=== PATIENT | female | born 1940 | race Caucasian/White ===

== ENCOUNTER 2020-09-20 11:19 | Outpatient (REF) | payer MEDICARE, SELFPAY | END 2020-09-20 11:20 | disposition home or self-care (01) | LOC: HO.LAB 11:19 | PROVIDERS: PCP Nurse Practitioner Family; Visit Provider Internal Medicine | DX: Z20.828 Contact with and (suspected) exposure to other viral communicable diseases (principal) | CPT/HCPCS: C9803; U0003 ==

== ENCOUNTER 2020-12-04 08:32 | Outpatient (REF) | payer MEDICARE, SELFPAY ==
--- NOTE | 2020-12-04 16:37 | MHC.AU.P13 ---
Adult Audiological Evaluation Date of Visit: 12/04/20 Electrolysist Used: COMMODITIES TRADER accompanied patient and helped with translation. Reason for Appointment: Audiological evaluation to monitor the status of Ms. Mosley's hearing loss. 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 She denies any significant changes to her hearing or medical history. She notes that she got a hearing aid between 6 months and 1 year ago but has since lost it. Does patient feel they have a hearing loss?: Yes If Yes, Which Ear?: Left Ear Has hearing been tested previously?: Yes Previous Hearing Test Results: [facility] [place], 07/12/2019- Mild to moderately severe mixed hearing loss in the left ear. Normal hearing in the right ear with a mild sensorineural hearing loss at 3k and 6k Hz. Ear History: Previous Ear Surgery: Left ear- PE tubes Bothersome Tinnitus/Ringing/Noises in Ears: Left Ear Blocked/Full Sensation in Ear(s): Left Ear Medical History: Medical History: Diabetes, High Blood Pressure, Thyroid Disease Medical History (Other): Chronic kidney disease Otoscopy: Right Ear: Unremarkable Left Ear: Unremarkable Tympanometry: Right Ear: Normal Middle Ear System (Type A) Left Ear: Non-compliant Middle Ear System (Type B) Hearing Evaluation: Transducer(s) Used: Insert Earphones, Bone Conduction Method: Conventional Audiometry Stimuli Used: Pure Tones Right Ear: Description of Hearing: Normal hearing 250-4000 Hz and 8000 Hz, with a mild hearing loss at 6000 Hz. Left Ear: Description of Hearing: Normal hearing at 250 Hz, sloping to a mild conductive hearing loss at 500-1000 Hz, a mild sensorineural hearing loss at 2000 Hz, a moderate mixed hearing loss at 3000 Hz, a severe conductive hearing loss at 4000 Hz, and a moderately severe hearing loss from 4818-1720 Hz. Speech Recognition Threshold (SRT): Method Used: Recorded Lists Stimuli Used: Spondee Words Right Ear: 30 dBHL Left Ear: 45 dBHL Word Discrimination: Method: Recorded Lists Word Lists Used: Lista Bisil?bica (Kosovan) Right Ear: 100% at 70 dBHL Left Ear: 100% at 80 dBHL Comparison: Compared to the most recent evaluation: Hearing is stable. Middle ear dysfunction persists in the left ear. Recommendations: Recommendations: Audiological re-evaluation in one year. Trial with amplification is recommended. Recommendations (Other): Ms. Mosley is scheduled to follow-up with ENT Dr. Adria Vera. Faxing today's audiogram and report to Dr. Vera. Advised Ms. Mosley that she should contact the clinic she received the hearing aid from about getting a replacement, as it may still be under warranty. She is also welcome to have her hearing aid records transferred to our clinic and we can look into getting her a replacement aid. Diagnosis: Primary Diagnosis: H90.3 Bilateral Sensorineural Hearing Loss Services Performed: Services Performed: Comprehensive Audiological Evaluation (CPT 83356) Tympanometry (CPT 48741) Signature: Provider: Erica Fernandez, CCC-A
== END 2020-12-04 08:33 | disposition home or self-care (01) ==
LOC: HO.SH 08:32
PROVIDERS: Visit Provider Nurse Practitioner Family
DX: H90.3 Sensorineural hearing loss, bilateral (principal)
CPT/HCPCS: 92557; 92567

== ENCOUNTER 2021-01-30 18:28 | Emergency (ER) | payer MEDICARE, SELFPAY ==
--- NOTE | ~2021-01-30 | CT_ITS ---
EXAMINATION: CT ABDOMEN AND PELVIS WITHOUT CONTRAST CLINICAL INFORMATION: Right upper quadrant and flank pain COMPARISON: None TECHNIQUE: Multidetector volumetric imaging was performed from the superior aspect of the liver through the pubic symphysis. Sagittal and coronal reformatted images were obtained on the technologist's workstation. This CT examination was performed using dose optimization techniques as appropriate, variously including the following: *Automated exposure control *Adjustment of mA and/or kV according to patient size (this includes techniques or standardized protocols for targeted exams where dose is matched to indication/reason for exam; i.e. extremities or head) *Use of iterative reconstruction technique DLP: 446 mGy-cm FINDINGS: LUNG BASES: Left lower lobe consolidation/atelectasis is present in the posterior basal segment. LIVER, GALLBLADDER, AND BILIARY TREE: The liver is normal in size, shape, and attenuation. No focal hepatic lesion or biliary ductal dilatation is present. Status post cholecystectomy. PANCREAS: Unremarkable. SPLEEN: Multiple splenic granulomas are present. ADRENAL GLANDS: Unremarkable. KIDNEYS AND URETERS: Both kidneys are somewhat lobular in appearance. Some rounded hyper attenuating lesions are present on the left most likely hyperdense/hyperattenuating cyst cysts. A water density cyst is noted on the right. No solid masses are seen on this study without IV contrast. No hydronephrosis is seen. No renal calculi are present. The ureters are not dilated. There are some large calcifications overlying the course of the right ureter which most likely represent phleboliths as the collecting system is not dilated. BLADDER: Unremarkable. GASTROINTESTINAL TRACT: Extensive sigmoid diverticular changes are present with mucosal hypertrophy. In the area of the distal descending colon, some diverticular changes are present as well with some pericolonic inflammatory change suggesting diverticulitis, although this is not the area of the patient's symptoms. The small and remainder of the large bowel are unremarkable. The appendix is unremarkable. ABDOMINAL WALL: A ventral hernia seen just to the right of the midline containing small bowel which does not appear obstructed. LYMPH NODES: No retroperitoneal lymphadenopathy VASCULAR: Atherosclerotic changes without aneurysm. PELVIC VISCERA: Surgically removed OSSEOUS STRUCTURES: Severe degenerative changes present at L5-S1 with lesser changes present at L4-L5. No pathologic bony destructive lesions are seen. CT/CT abdomen pelvis wo con IMPRESSION: 1. Left lower lobe consolidation/atelectasis 2. Status post cholecystectomy and hysterectomy 3. Splenic granulomas 4. An area at the junction of the descending colon and sigmoid exhibits findings that would be compatible with early uncomplicated diverticulitis, however, this is not the location of the patient's symptoms. 5. Nonobstructing ventral hernia just to the right of the midline in the pelvis.
--- NOTE | ~2021-01-30 | XR_ITS ---
EXAMINATION: XR CHEST CLINICAL INFORMATION: Cough COMPARISON: Overt 27 2016 TECHNIQUE: 2 views of the chest were obtained. FINDINGS: The heart and pulmonary vessels appear normal. Again seen is a dense calcified right midlung granuloma unchanged. In the right suprahilar region there is an area of patchy increased density slightly increased when compared to the prior study which could represent a small infiltrate. A similar finding is present in the posterior basal segment of the left lower lobe with some ill-defined patchy density. The lungs are otherwise clear. Degenerative changes and scoliosis noted in the spine. Surgical clips present in the gallbladder fossa. XR/XR chest 2V IMPRESSION: 2 ill-defined areas of patchy densities - on the right suprahilar region as well as in the posterior basal segment left lower lobe. Differential diagnosis would include pneumonia.
[2021-01-30 20:07] VITALS: BP 163/78; PULSE 84; RESP 16; TEMP 36.7; O2SAT 100; BMI 22.3
[2021-01-30 20:34] LABS: MANUAL DIFF FLAG NO
[2021-01-30 20:37] LABS: Basophils Absolute Auto 0.1 X10*3/uL (0.0-0.2); Basophils Percent Auto 0.4 % (0-2); Eosinophils Absolute Auto 0.1 X10*3/uL (0.0-0.4); Eosinophils Percent Auto 0.5 % (0-4); Hematocrit 34.9 % (37-47); Hemoglobin 11.2 g/dl (12.0-16.0); Imm Gran Abs Auto 0.03 X10*3/uL (0.00-0.03); Imm Gran Pct Auto 0.2 % (0.0-0.4); Lymphocytes Absolute Auto 2.7 X10*3/uL (1.2-4.9); Lymphocytes Percent Auto 20.6 % (20-40); Mean Corpuscular HGB Conc 32.1 g/dl (31.0-35.0); Mean Corpuscular Hemoglobin 28.4 pg (27.0-33.0); Mean Corpuscular Volume 88.6 fL (80-98); Monocytes Absolute Auto 0.8 X10*3/uL (0.1-1.2); Monocytes Percent Auto 5.9 % (2-11); Neutrophils Absolute Auto 9.4 X10*3/uL (2.0-8.3); Neutrophils Percent Auto 72.4 % (45-73); Platelet Count 269 X10*3/uL (160-400); Red Blood Count 3.94 X10*6/uL (4.20-5.50); Red Cell Distribution Width 12.4 % (11.0-16.0); White Blood Count 12.9 X10*3/uL (4.8-10.8)
[2021-01-30 20:54] LABS: Glucose Urine UA NEG (NEG); Leukocyte Esterase Urine TRACE (NEG); Nitrite Urine NEG (NEG); PH 5.5 (5.0-8.0); Specific Gravity - Urine 1.015 (1.005-1.025); UACC Culture Trigger YES; Urine Blood NEG (NEG); Urine Ketones 5 MG/DL (NEG); Urine Protein NEG (NEG-TRACE)
[2021-01-30 20:56] LABS: Alanine Aminotransferase 15 U/L (0-31); Albumin Level 4.5 g/dL (3.5-5.0); Alkaline Phosphatase 75 U/L (39-117); Anion Gap 19 (12-20); Aspartate Amino Transferase 13 U/L (5-31); Blood Urea Nitrogen 29 mg/dL (9-16); Calcium 8.9 mg/dL (8.4-10.2); Carbon Dioxide 22 mmol/L (22-29); Chloride 100 mmol/L (96-108); Creatinine Clr Calc Pharmacy 26.1; Estimated Glomerular Filt Rate 34; Glucose Random 167 mg/dL (60-115); Potassium 4.9 mmol/L (3.3-5.1); Sodium 136 mmol/L (135-145)
[2021-01-30 20:58] LABS: Appearance Urine CLEAR; Color Urine YELLOW
[2021-01-30 21:05] LABS: Bacteria Urine TRACE /LPF; RBC Urine 0-2 /HPF (0); Squamous Epithelial Cell Urine TRACE /LPF
[2021-01-30 21:06] LABS: Renal Epithelial Cells Urine TRACE /LPF
[2021-01-30 22:00] VITALS: BP 153/73; PULSE 75; RESP 16; TEMP 37; O2SAT 97
--- NOTE | 2021-01-30 22:13 | ED.ABDPAIN ---
HPI - Abdominal Pain General Chief Complaint: Abdominal Pain Stated Complaint: R Side pain Time Seen by Provider: 01/30/21 22:11 Source: patient, family (Daughter) and transit planner Mode of arrival: ambulatory History of Present Illness HPI narrative: This is an 80-year-old female with history of high blood pressure, diabetes presents with 2 days of worsening right upper quadrant/flank pain that radiates into epigastric area without associated fevers, chills, nausea, vomiting, diarrhea and does have a reported history of cholecystectomy as well as hysterectomy. She states that nothing seems to make it better or worse although today it was very sharp and she notice that she had a decrease in appetite and was unable to eat today due to this discomfort. She denies any urinary pain/burning/frequency. Denies any recent travel, shortness of breath, chest pain/palpitations. Related Data Previous Rx's Medication Instructions Recorded amoxicillin-pot clavulanate 1 tab PO Q12H 10 Days #20 tab 01/30/21 [Augmentin] ondansetron HCl [Zofran] 4 mg PO Q8H PRN 2 Days #7 tab 01/31/21 Allergies Allergy/AdvReac Type Severity Reaction Status Date / Time No Known Allergies Allergy Unverified 07/26/20 16:17 Review of Systems Review of Systems Pertinent positives and negatives as stated in HPI 10 point review of systems is otherwise negative. Physical Exam Vital Signs: Vital Signs: Last Vital Signs Temp 98.6 F 01/30/21 22:00 Pulse 75 01/30/21 22:00 Resp 16 01/30/21 22:00 BP 153/73 H 01/30/21 22:00 Pulse Ox 97 01/30/21 22:00 Body Mass Index 22.3 VITAL SIGNS: Reviewed. GENERAL: Well developed, well nourished, in no acute distress. HEAD: Normocephalic/atraumatic, EYES: PERRLA, EOMI NOSE: Nares patent bilateral OROPHARYNX: no oral lesions noted, posterior pharynx clear NECK: Supple, no adenopathy LUNGS: Normal breath sounds. No adventitious sounds or accessory muscle use. SpO2<100> CARDIOVASCULAR: Regular rate and rhythm without noted murmurs, no JVD or lower extremity edema. ABDOMEN: Soft, mild tenderness in the right upper quadrant without rebound, non-distended with bowel sounds. SKIN: Inspection of the skin reveals no rashes NEUROLOGIC: Alert and oriented x 4. Course Course Course Narrative: This is an 80-year-old female with history and clinical presentation renal colic, pancreatitis, diverticulitis, gastritis, but doubt cardiopulmonary etiology or pyelonephritis. A review of all investigations patient has both a UTI as well as evidence supporting diverticulitis which is consistent with patient's history. Patient was treated with initial antibiotics and will be discharged with remaining entire course. MDM - Abdominal Pain Lab Data Result diagrams: 01/30/21 20:28 01/30/21 20:28 Labs: Lab Results 01/30/21 01/30/21 01/30/21 Range/Units 20:28 20:28 20:28 WBC 12.9 H (4.8-10.8) X10*3/uL RBC 3.94 L (4.20-5.50) X10*6/uL Hgb 11.2 L (12.0-16.0) g/dl Hct 34.9 L (37-47) % MCV 88.6 (80-98) fL MCH 28.4 (27.0-33.0) pg MCHC 32.1 (31.0-35.0) g/dl RDW 12.4 (11.0-16.0) % Plt Count 269 (160-400) X10*3/uL MPV 10.0 (9.4-12.3) fL Immature Gran % (Auto) 0.2 (0.0-0.4) % Neut % (Auto) 72.4 (45-73) % Lymph % (Auto) 20.6 (20-40) % [place] % (Auto) 5.9 (2-11) % Eos % (Auto) 0.5 (0-4) % Baso % (Auto) 0.4 (0-2) % Lymph # (Auto) 2.7 (1.2-4.9) X10*3/uL [place] # (Auto) 0.8 (0.1-1.2) X10*3/uL Eos # (Auto) 0.1 (0.0-0.4) X10*3/uL Baso # (Auto) 0.1 (0.0-0.2) X10*3/uL Abs Immat Gran (auto) 0.03 (0.00-0.03) X10*3/uL Absolute Neuts (auto) 9.4 H (2.0-8.3) X10*3/uL Absolute Nucleated RBC 0.000 (0.0-0.012) X10*3/uL Nucleated RBC % (auto) 0.0 (0.0-0.2) /100WBC Hold Blue Top SEE NOTE Sodium 136 (135-145) mmol/L Potassium 4.9 (3.3-5.1) mmol/L Chloride 100 (96-108) mmol/L Carbon Dioxide 22 (22-29) mmol/L Anion Gap 19 (12-20) BUN 29 H (9-16) mg/dL Creatinine 1.46 H (0.5-1.4) mg/dL Estim Creat Clear Calc 26.1 Estimated GFR 34 Random Glucose 167 H (60-115) mg/dL Calcium 8.9 (8.4-10.2) mg/dL Total Bilirubin 2.0 H (0.0-1.0) mg/dL AST 13 (5-31) U/L ALT 15 (0-31) U/L Alkaline Phosphatase 75 (39-117) U/L Total Protein 7.0 (6.5-8.0) g/dL Albumin 4.5 (3.5-5.0) g/dL Lipase 39 (8-78) U/L Urine Color Urine Appearance Urine pH (5.0-8.0) Ur Specific [place] (1.005-1.025) Urine Protein (NEG-TRACE) MG/DL Urine Glucose (UA) (NEG) MG/DL Urine Ketones (NEG) MG/DL Urine Blood (NEG) Urine Nitrite (NEG) Ur Leukocyte Esterase (NEG) Urine RBC (0) /HPF Urine WBC (0-4) /HPF Ur Squamous Epith Cells /LPF Ur Renal Epithelial Cell /LPF Urine Bacteria /LPF 01/30/21 Range/Units 20:40 WBC (4.8-10.8) X10*3/uL RBC (4.20-5.50) X10*6/uL Hgb (12.0-16.0) g/dl Hct (37-47) % MCV (80-98) fL MCH (27.0-33.0) pg MCHC (31.0-35.0) g/dl RDW (11.0-16.0) % Plt Count (160-400) X10*3/uL MPV (9.4-12.3) fL Immature Gran % (Auto) (0.0-0.4) % Neut % (Auto) (45-73) % Lymph % (Auto) (20-40) % [place] % (Auto) (2-11) % Eos % (Auto) (0-4) % Baso % (Auto) (0-2) % Lymph # (Auto) (1.2-4.9) X10*3/uL [place] # (Auto) (0.1-1.2) X10*3/uL Eos # (Auto) (0.0-0.4) X10*3/uL Baso # (Auto) (0.0-0.2) X10*3/uL Abs Immat Gran (auto) (0.00-0.03) X10*3/uL Absolute Neuts (auto) (2.0-8.3) X10*3/uL Absolute Nucleated RBC (0.0-0.012) X10*3/uL Nucleated RBC % (auto) (0.0-0.2) /100WBC Hold Blue Top Sodium (135-145) mmol/L Potassium (3.3-5.1) mmol/L Chloride (96-108) mmol/L Carbon Dioxide (22-29) mmol/L Anion Gap (12-20) BUN (9-16) mg/dL Creatinine (0.5-1.4) mg/dL Estim Creat Clear Calc Estimated GFR Random Glucose (60-115) mg/dL Calcium (8.4-10.2) mg/dL Total Bilirubin (0.0-1.0) mg/dL AST (5-31) U/L ALT (0-31) U/L Alkaline Phosphatase (39-117) U/L Total Protein (6.5-8.0) g/dL Albumin (3.5-5.0) g/dL Lipase (8-78) U/L Urine Color YELLOW Urine Appearance CLEAR Urine pH 5.5 (5.0-8.0) Ur Specific [place] 1.015 (1.005-1.025) Urine Protein NEG (NEG-TRACE) MG/DL Urine Glucose (UA) NEG (NEG) MG/DL Urine Ketones 5 (NEG) MG/DL Urine Blood NEG (NEG) Urine Nitrite NEG (NEG) Ur Leukocyte Esterase TRACE H (NEG) Urine RBC 0-2 (0) /HPF Urine WBC 10-14 H (0-4) /HPF Ur Squamous Epith Cells TRACE /LPF Ur Renal Epithelial Cell TRACE /LPF Urine Bacteria TRACE /LPF ECG Data Attestation: I personally reviewed and interpreted this ECG as follows: Prior ECG tracings: available for review (05/02/2017 no acute changes on comparison) Interpretation: Normal sinus rhythm, HR-76, no evidence of acute ischemia, RBBB, HI/QTC are within normal limits. Discharge Plan Discharge Clinical Impression: Diverticulitis, Acute UTI Patient Disposition: Home, Self-Care Instructions: Diverticulitis (ED), Urinary Tract Infection in Women (ED), Diverticulitis Diet (ED), Urinary Tract Infection in Older Adults (ED) Additional Instructions: 1. Reanude todos los medicamentos caseros seg?n lo prescrito. 2. Incrementar la hidrataci?n de los fluidos especialmente con agua. 3. Se le proporcionar? jesse receta para medicamentos contra las n?useas que deber?an ayudar con las n?useas que valero estado sintiendo, aunque esta sensaci?n mejorar? con los antibi?ticos. 4. Erin un seguimiento con rolon proveedor de atenci?n primaria los pr?ximos 2 a 3 d?as para jesse reevaluaci?n, y deber? realizarse jesse colonoscopia en aproximadamente 6 semanas. No dude en volver al servicio de urgencias si experimenta un empeoramiento matteo de antonia s?ntomas. Prescriptions: New amoxicillin-pot clavulanate [Augmentin] 875-125 mg tablet 1 tab PO Q12H 10 Days Qty: 20 RF: 0 ondansetron HCl [Zofran] 4 mg tablet 4 mg PO Q8H PRN (Reason: nausea and vomiting) 2 Days Qty: 7 RF: 0 Referrals: Physician,Unknown [Primary Care Provider] - 2 days Print Language: [place] [facility] Past Medical History Source: nursing notes reviewed Medical History Cholecystectomy planned Diabetes HTN (hypertension) Social History Social History Advance Directives: No Advance Directives Information Provided: Yes
--- NOTE | 2021-01-30 22:14 | ECG_ITS ---
Test Reason : ABD PAIN Blood Pressure : / mmHG Vent. Rate : 076 BPM Atrial Rate : 076 BPM P-R Int : 180 ms QRS Dur : 126 ms QT Int : 428 ms P-R-T Axes : 061 -05 019 degrees QTc Int : 481 ms Normal sinus rhythm Right bundle branch block Abnormal ECG When compared with ECG of 02-MAY-2017 17:08, No significant change was found Referred By: Roxana Carlson Electronically Signed By:RICHARD MANUEL
[2021-01-30 22:29] LABS: Lipase 39 U/L (8-78)
[2021-01-30] MEDS: Lidocaine HCl Viscous 2 % 15 ML SOLUTION 10 ML MUCOUS MEM (23:31)
[2021-01-30] MEDS: Magnesium Hydrox/Alum Hydrox 30 ML ORAL.SUSP PO (23:32)
[2021-01-30] MEDS: 0.9 % Sodium Chloride 1,000 ML 999 ML IV (23:32)
[2021-01-30] MEDS: cefTRIAXone sodium 1 GM in 0.9 % Sodium Chloride 50 ML IV (23:32)
[2021-01-31] MEDS: metroNIDAZOLE/NS 500 MG/100 ML PIGGYBACK 100 MG IV (00:31)
[2021-01-31 02:00] VITALS: BP 117/60; PULSE 80; RESP 16; O2SAT 99
[2021-01-31 02:07] LABS: COVID-19 Test Negative (Negative); IDNOW Serial# 9DD0AD1C
== END 2021-01-31 02:23 | disposition home or self-care (01) ==
PROVIDERS: Emergency Provider Student in an Organized Health Care Education/Training Program
DX: K57.32 Diverticulitis of large intestine without perforation or abscess without bleeding (principal); N39.0 Urinary tract infection, site not specified; R10.13 Epigastric pain; Z79.899 Other long term (current) drug therapy; Z20.822 Contact with and (suspected) exposure to COVID-19
CPT/HCPCS: 36415; 71046; 74176; 80053; 81001; 81003; 83690; 85025; 87086; 87635; 93005; 96361; 96365; 96366; 99284; J0696

== ENCOUNTER 2021-08-27 08:56 | Outpatient (REF) | payer MEDICARE, SELFPAY ==
--- NOTE | ~2021-08-27 | MM_ITS ---
EXAMINATION: BONE DENSITOMETRY CLINICAL INDICATION: Osteoporosis. COMPARISON: Previous BD dated 07/19/2019 and baseline BD dated 10/29/2012. TECHNIQUE: Using a [employer] DXA System (software version: 13.1) manufactured by [employer], dual-energy x-ray absorptiometry was performed of the lumbar spine and left hip. The images are of good technical quality. Summary results are attached. FINDINGS: AP SPINE L1-L4: Current: BMD 1.156 g/cm2, Z-score 1.9, T-score -0.2, normal, 6.7% increase from previous, 15.6% increase from baseline (<5% change is not significant). Prior: BMD 1.083 g/cm2. Baseline: BMD 1.000 g/cm2. LEFT FEMUR, NECK: Current: BMD 0.663 g/cm2, Z-score -0.3, T-score -2.7, osteoporosis. Prior: BMD 0.638 g/cm2. Baseline: BMD 0.666 g/cm2. LEFT FEMUR, TOTAL: Current: BMD 0.698 g/cm2, Z-score -0.2, T-score -2.5, osteoporosis, 1.2% increase from previous, 1.8% decrease from baseline (<5% change is not significant). Prior: BMD 0.690 g/cm2. Baseline: BMD 0.711 g/cm2. IDENTIFIED RISK FACTORS: Menopause, hysterectomy, bilateral oophorectomy, osteoporosis. HISTORY OF FRACTURE: Trauma, extremities. MEDICATIONS: Calcium supplements or multivitamin, vitamin D, bisphosphonate. MM/XR DEXA axial skeleton IMPRESSION: 1. DIAGNOSIS: Osteoporosis based on the lowest T-score value of -2.7 in the femoral neck applying World Health Organization criteria. 2. 10-YEAR FRACTURE RISK PREDICTION, FRAX: Major osteoporotic fracture (clinical spine, forearm, hip or shoulder) 18.1%. Hip fracture 6.3%. 3. Treatment Recommendations: NOF guidelines recommend consideration for treatment in postmenopausal women and men age 50 and older presenting with the following: -A hip or vertebral (clinical or morphometric) fracture. -T-score less than or equal to -2.5 at the femoral neck or spine after appropriate evaluation to exclude secondary causes. -Low bone mass at the hip or spine and a 10-year fracture probability by FRAX of greater than or equal to 3% for hip fracture or greater than or equal to 20% for major osteoporotic fracture based on the [place] adapted WHO algorithm. 4. Other Recommendations: All treatment decisions require clinical judgment and consideration of individual patient factors, including patient preferences, comorbidities, previous drug use, risk factors not captured in the FRAX model (e.g. frailty, falls, vitamin D deficiency, increased bone turnover, interval significant decline in bone density) and possible under or overestimation of fracture risk by FRAX. Additional medical evaluation for secondary cause of low bone mineral density may be appropriate. FUTURE SCAN RECOMMENDATION: People with diagnosed cases of osteoporosis or at high risk for fracture should have regular bone mineral density tests. For patients eligible for Medicare, routine testing is allowed once every 2 years. The testing frequency can be increased to one year for patients who have rapidly progressing disease, those who are receiving or discontinuing medical therapy to restore bone mass, or have additional risk factors.
--- NOTE | ~2021-08-27 | MM_ITS ---
EXAMINATION: MM SCREENING DIGITAL BREAST TOMOSYNTHESIS, BILATERAL CLINICAL INFORMATION: Screening. Asymptomatic. Remote reduction mammoplasty, 1996. The lifetime risk of breast cancer based on the Tyrer-Cuzick Model is 2%. COMPARISON: Mammography: 07/14/2020, 07/05/2019, 06/28/2018 TECHNIQUE: Digital breast tomosynthesis is performed in both the craniocaudal and mediolateral oblique views along with computer-aided detection (CAD). Synthesized 2D images are generated from the tomosynthesis. FINDINGS: There are scattered areas of fibroglandular density (ACR BI-RADS breast composition Category b). There are no significant masses, abnormal calcifications, or other abnormalities. There is minor scarring consistent with the reduction mammoplasty. There is no developing density. Scattered benign round and rim and some vascular calcifications are again present. MM/MM tomosynthesis screening BI IMPRESSION: No mammographic evidence of malignancy. ASSESSMENT: BI-RADS 2: Benign RECOMMENDATION: Routine annual mammography screening. This patient's information was entered into a reminder system with a target due date for their next mammogram.
== END 2021-08-27 08:57 | disposition home or self-care (01) ==
LOC: HO.MAMMO 08:56
PROVIDERS: PCP Internal Medicine; Visit Provider Internal Medicine
DX: Z12.31 Encounter for screening mammogram for malignant neoplasm of breast (principal); Z13.820 Encounter for screening for osteoporosis; M81.0 Age-related osteoporosis without current pathological fracture; Z78.0 Asymptomatic menopausal state; Z98.890 Other specified postprocedural states; Z90.722 Acquired absence of ovaries, bilateral; Z79.899 Other long term (current) drug therapy
CPT/HCPCS: 77063; 77067; 77080

== ENCOUNTER 2022-02-26 16:10 | Emergency (ER) | payer MEDICARE, SELFPAY ==
--- NOTE | ~2022-02-26 | XR_ITS ---
Indication: Fall, injury EXAMINATION: Right ankle, right tib-fib, right knee. 3 views of the right ankle demonstrate degenerative change. There is no acute fracture or dislocation. 2 views the right tib-fib do not demonstrate evidence for acute fracture. Extensive density in the distal fibula. A bony lesion cannot be excluded here. Sclerotic benign-appearing Soft tissue calcifications are noted. 4 views the right knee show degenerative changes. There is no acute fracture or dislocation. Meniscal calcifications are seen. XR/XR ankle RT min 3V IMPRESSION: Multiple studies. No acute finding. Degenerative changes are noted.
--- NOTE | ~2022-02-26 | XR_ITS ---
Indication: Fall, injury EXAMINATION: Right ankle, right tib-fib, right knee. 3 views of the right ankle demonstrate degenerative change. There is no acute fracture or dislocation. 2 views the right tib-fib do not demonstrate evidence for acute fracture. Extensive density in the distal fibula. A bony lesion cannot be excluded here. Sclerotic benign-appearing Soft tissue calcifications are noted. 4 views the right knee show degenerative changes. There is no acute fracture or dislocation. Meniscal calcifications are seen. XR/XR knee RT 3V IMPRESSION: Multiple studies. No acute finding. Degenerative changes are noted.
--- NOTE | ~2022-02-26 | XR_ITS ---
Indication: Fall, injury EXAMINATION: Right ankle, right tib-fib, right knee. 3 views of the right ankle demonstrate degenerative change. There is no acute fracture or dislocation. 2 views the right tib-fib do not demonstrate evidence for acute fracture. Extensive density in the distal fibula. A bony lesion cannot be excluded here. Sclerotic benign-appearing Soft tissue calcifications are noted. 4 views the right knee show degenerative changes. There is no acute fracture or dislocation. Meniscal calcifications are seen. XR/XR tibia fibula RT 2V IMPRESSION: Multiple studies. No acute finding. Degenerative changes are noted.
[2022-02-26 17:50] VITALS: BP 152/53; PULSE 70; RESP 18; TEMP 36.3; O2SAT 98; BMI 22.4
--- NOTE | 2022-02-26 18:37 | ED.FALL ---
HPI - Fall General Chief Complaint: Fall Stated Complaint: fall/leg INJ Time Seen by Provider: 02/26/22 18:37 Source: patient Mode of arrival: ambulatory Limitations: no limitations History of Present Illness HPI Narrative: 81 y/o female with history of HTN, DM, on eliquis for possible afib presents to the ER with her bending machine set up operator for evaluation of ongoing right knee and right ankle pain after mechanical fall in [place] on February 10. Her bending machine set up operator reports that she was brought to the hospital after she fell in [place] and was told she had a broken pinky toe on the right foot. No other injuries were noted. Patient reports ongoing pain in the right ankle and right knee in his having difficulty walking longer distances. She reports some swelling on the outside of the right ankle and pain all throughout the knee when she walks. No new injuries or falls. No hip pain. MD complaint: fall Onset (ago): week(s) Fall from: standing Fall witnessed: yes, by family Place fall occurred: street Loss of consciousness: none Prolonged down time: no Symptoms prior to fall: none Context: tripped/slipped Location of injury - extremities: right: knee, lower leg, ankle and foot Severity: moderate Severity scale (1-10): 6 Quality: aching Associated symptoms (after fall): denies Related Data Previous Rx's Medication Instructions Recorded amoxicillin 875 mg-potassium 1 tab PO Q12H 10 Days #20 tab 01/30/21 clavulanate 125 mg tablet (Augmentin) ondansetron HCl 4 mg tablet 4 mg PO Q8H PRN 2 Days #7 tab 01/31/21 (Zofran) Allergies Allergy/AdvReac Type Severity Reaction Status Date / Time No Known Allergies Allergy Unverified 07/26/20 16:17 Review of Systems Review of Systems: Constitutional: No Fever, No Chills Cardiovascular: No Chest Pain, No SOB Gastrointestinal: No Nausea, No Vomiting, No abdominal Pain Musculoskeletal: + joint pain, No Myalgias Skin: + Skin Lesions, No rash Neuro: No Weakness, No Numbness, No Dizziness, No Headache Psych: No Anxiety/Panic, No Depression Heme/Lymph: No Bruising, No Lymphadenopathy PMFSH Past Medical History Medical History (Updated 02/26/22 @ 18:55 by JACINDA Caballero) A-fib Cholecystectomy planned Diabetes HTN (hypertension) Social History Social History Alcohol intake: current Alcohol intake frequency: holidays/special occasions only Advance Directives: No Advance Directives Information Provided: No Physical Exam Vital Signs: Vital Signs: Last Vital Signs Temp 97.4 F 02/26/22 17:50 Pulse 70 02/26/22 17:50 Resp 18 02/26/22 17:50 BP 152/53 H 02/26/22 17:50 Pulse Ox 98 02/26/22 17:50 BMI result Body Mass Index 22.4 Appearance: Alert elderly female lying in bed Oriented X3. No acute distress. HEENT: normal inspection CVS: Normal heart rate and rhythm. Pulses normal. Respiratory: No respiratory distress. Skin: Skin warm and dry. Normal skin color. Normal skin turgor. No rashes. Extremities: Right lower extremity with mild lateral ankle swelling, mild tenderness of the lateral malleolus. Normal range of motion of the right ankle and normal strength. Neurovascularly intact distally. Normal inspection of the right lower leg with a small healing abrasion approximately. Right knee is normal to inspection, normal range of motion, no joint laxity appreciated on examination. No tenderness in the medial or lateral joint lines. Neuro: Oriented X 3. No motor deficit. No sensory deficit. Course Course Course Narrative: 81-year-old female with history of diabetes, hypertension, question of AFib on Eliquis presents to the ER for evaluation of ongoing right knee and ankle pain after she had a mechanical fall on February 10. Pain is mostly in the right knee and she has some residual swelling in the right ankle. The right knee on examination has no swelling, no tenderness and no joint laxity appreciated on examination. The right ankle as some mild residual swelling with normal range of motion and strength. She is ambulatory with a slow but steady gait. X-rays were taken of the ankle, knee, tib-fib and all were unremarkable for acute injuries, degenerative changes were noted. Recommend patient follow-up with orthopedics for further evaluation. Encouraged Tylenol 975 q.6 for pain. Weight bear as tolerated. Stable for DC. Critical Care Time Critical Care Time Critical Care Time: No Discharge Plan Discharge Clinical Impression: Knee pain, right, Ankle pain, right Patient Disposition: Home, Self-Care Instructions: Ankle Sprain (DC), Knee Pain (ED) Additional Instructions: X-rays were taken of your ankle, knee, and leg bones - no broken bones were seen You may have damaged or strained some of the internal structures when you fell - recommend following up with Orthopedics for further evaluation - name and number below You may bear weight as tolerated Recommend Tylenol 975 mg every 6 hours around the clock Follow up with your primary care doctor If you develop new or worsening symptoms call 911 or come back to the ER for further evaluation. Prescriptions: No Action amoxicillin-pot clavulanate [Augmentin] 875-125 mg tablet 1 tab PO Q12H 10 Days Qty: 20 0RF ondansetron HCl [Zofran] 4 mg tablet 4 mg PO Q8H PRN (Reason: nausea and vomiting) 2 Days Qty: 7 0RF Referrals: Dimas Alvarado PA-C [Physician Income [employer] Expert] - 1 week (right knee and ankle pain s/p fall 02/10/22 - XR negative) Print Language: Citizen [place]
== END 2022-02-26 19:06 | disposition home or self-care (01) ==
PROVIDERS: Emergency Provider Emergency Medicine; PCP Internal Medicine
DX: M25.561 Pain in right knee (principal); M25.571 Pain in right ankle and joints of right foot; I10 Essential (primary) hypertension; E11.9 Type 2 diabetes mellitus without complications; I48.91 Unspecified atrial fibrillation; Z79.01 Long term (current) use of anticoagulants
CPT/HCPCS: 73562; 73590; 73610; 99283

== ENCOUNTER 2022-04-07 22:51 | Emergency (ER) | payer OTHER, SELFPAY ==
--- NOTE | ~2022-04-07 | XR_ITS ---
EXAMINATION: XR KNEE, LEFT CLINICAL INFORMATION: Fall, comparison to prior COMPARISON: 04/08/2022 TECHNIQUE: Single sunrise view of the patella. XR/XR knee LT 1V FINDINGS/IMPRESSION: Per technologist report, patient was unable to bend the knee for adequate positioning. Patellofemoral alignment appears maintained. While no displaced fracture is seen, the possibility of nondisplaced fracture is difficult to exclude given the prominent surrounding soft tissue swelling.
--- NOTE | ~2022-04-07 | CT_ITS ---
EXAMINATION: NONCONTRAST HEAD CT NONCONTRAST MAXILLOFACIAL CT NONCONTRAST CERVICAL SPINE CT INDICATION INFORMATION: Fall, on anticoagulation COMPARISON: None TECHNIQUE: Separate noncontrast CT examinations of the head, maxillofacial bones, and cervical spine were performed. Coronal and sagittal images were created for each examination at the technologist workstation. DOSE LOWERING TECHNIQUES: This CT examination was performed using dose optimization techniques as appropriate, variously including the following: - Automated exposure control - Adjustment of mA and/or kV according to patient size (this includes techniques or standardized protocols for targeted exams were dose is matched to indication/reason for exam; i.e. extremities or head) - Use of iterative reconstruction technique DLP: 1060 mGy-cm FINDINGS: Head: There is no evidence of acute intracranial hemorrhage or territorial infarction. No abnormal mass-effect or midline shift is seen. Colon to white matter differentiation is well preserved. No extra-axial fluid collections are identified. The ventricles are normal in size. There is mild periventricular white matter hypoattenuation consistent with chronic small vessel ischemic disease. There is mild inferior frontal scalp soft tissue swelling. No acute calvarial fracture is seen. The mastoid air cells are well aerated. Maxillofacial: No acute maxillofacial fractures are seen. There is mucosal thickening of the right maxillary sinus inferiorly. Mild mucosal thickening of the bilateral ethmoid air cells and right frontal sinus. There is mucosal thickening of the left infundibulum. The mandibular condyles are well-seated in the condylar fossa. The orbits demonstrate a normal appearance bilaterally. The globes are intact, and there are no suspicious findings to suggest retrobulbar hemorrhage. Cervical spine: There is anatomic alignment of the vertebral bodies and posterior elements. There is degenerative change at the atlantodens articulation. Vertebral body heights are maintained. There is disc space narrowing throughout the mid and lower cervical spine with associated endplate osteophytes. Moderate facet arthropathy is present bilaterally. No evidence of acute fracture. No prevertebral soft tissue swelling. Included lung apices show no pneumothorax. CT/CT cervical spine wo con IMPRESSION: 1. No acute intracranial findings. Mild inferior frontal scalp soft tissue swelling. 2. No facial fracture identified. 3. No acute findings identified in the cervical spine; multilevel degenerative changes.
--- NOTE | ~2022-04-07 | CT_ITS ---
EXAMINATION: CT KNEE WITHOUT CONTRAST, LEFT CLINICAL INFORMATION: Swelling after fall, assess for occult fracture COMPARISON: Radiographs 04/08/2022 TECHNIQUE: No intravenous contrast was utilized. Multidetector helical imaging was performed through the left knee. Coronal and sagittal reformatted images were created. DOSE LOWERING TECHNIQUES: This CT examination was performed using dose optimization techniques as appropriate, variously including the following: - Automated exposure control - Adjustment of mA and/or kV according to patient size (this includes techniques or standardized protocols for targeted exams were dose is matched to indication/reason for exam; i.e. extremities or head) - Use of iterative reconstruction technique DLP: 202 mGy-cm FINDINGS: There is an essentially nondisplaced patellar fracture with fracture lines extending from the inferior pole of the upper left aspect of the patella. Surrounding soft tissue swelling is present along with moderate-sized lipohemarthrosis. Redemonstrated prominent patellar osteophyte formation. Articular alignment across the knee is maintained. There is tricompartmental degenerative change with joint space narrowing, osteophyte formation, and chondrocalcinosis. A popliteal fossa cyst is noted measuring approximately [address]/CT knee LT wo con IMPRESSION: Essentially nondisplaced fracture of the patella. Associated lipohemarthrosis and soft tissue swelling.
--- NOTE | ~2022-04-07 | XR_ITS ---
EXAMINATION: XR KNEE, LEFT CLINICAL INFORMATION: Pain, swelling, status post fall. COMPARISON: Radiograph of the left knee dated from 03/20/2017. TECHNIQUE: Four views of the left knee. FINDINGS: Soft tissue swelling around the knee with a large joint effusion. Chronic deformity of the patella and proximal fibula, possibly sequela of prior injury. No discrete acute fractures or malalignment. Severe tricompartmental degenerative osteoarthritis with joint space narrowing and osteophytes. There is also chondrocalcinosis. XR/XR knee LT 4V IMPRESSION: Large joint effusion. Chronic deformity of the patella in which subtle injuries can be occult. If a patellar fracture is a concern, recommend correlation with sunrise views. Chronic appearing deformity of the proximal fibula. Severe tricompartmental degenerative osteoarthritis. Chondrocalcinosis.
--- NOTE | 2022-04-07 22:53 | ED.FALL ---
HPI - Fall General Chief Complaint: Fall <JACINDA Caballero Last Filed: 04/08/22 01:41> Stated Complaint: FALL <JACINDA Caballero Last Filed: 04/08/22 01:41> Time Seen by Provider: 04/07/22 22:52 <JACINDA Caballero Last Filed: 04/08/22 01:41> Source: patient, EMS and old records reviewed <JACINDA Caballero Last Filed: 04/08/22 01:41> Mode of arrival: EMS <JACINDA Caballero Last Filed: 04/08/22 01:41> Limitations: no limitations <JACINDA Caballero Last Filed: 04/08/22 01:41> History of Present Illness HPI Narrative: 81 y/o female with history of DM, HTN, Afib on Eliquis, hx UTI, hx diverticulitis, history of falls who presents to the ER via EMS for evaluation after she tripped and fell on the sidewalk at her granddaughter's birthday alliance party about 1 hour ago. She reportedly lost her footing and fell down onto her left knee and hit her face on the cement. She was able to get up with the assistance of her daughter and granddaughter. She did not lose consciousness. She lives home alone and does not use a cane or walker for assistance at baseline. She fell in [place] about 1 month ago as well. Denies lightheadedness or dizziness prior to fall. On arrival to the ER patient complains of left knee pain and swelling as well as facial pain with abrasions. She denies headache, SOB, chest pain or abdominal pain. No hip pain. <JACINDA Caballero Last Filed: 04/08/22 01:41> MD complaint: fall <JACINDA Caballero Last Filed: 04/08/22 01:41> Onset (ago): hour(s) (1) <JACINDA Caballero Last Filed: 04/08/22 01:41> Fall from: standing <JACINDA Caballero Last Filed: 04/08/22 01:41> Fall witnessed: yes, by family <JACINDA Caballero Last Filed: 04/08/22 01:41> Place fall occurred: street <JACINDA Caballero - Last Filed: 04/08/22 01:41> Loss of consciousness: none <JACINDA Caballero Last Filed: 04/08/22 01:41> Prolonged down time: no <JACINDA Caballero Last Filed: 04/08/22 01:41> Symptoms prior to fall: none <JACINDA Caballero - Last Filed: 04/08/22 01:41> Context: tripped/slipped <JACINDA Caballero - Last Filed: 04/08/22 01:41> Location of injury: face <JACINDA Caballero Last Filed: 04/08/22 01:41> Location of injury - extremities: left: knee <JACINDA Caballero - Last Filed: 04/08/22 01:41> Severity: moderate <JACINDA Caballero Last Filed: 04/08/22 01:41> Quality: aching <JACINDA Caballero Last Filed: 04/08/22 01:41> Associated symptoms (after fall): headache <JACINDA Caballero Last Filed: 04/08/22 01:41> Related Data Home Medications: Home Medications Medication Instructions Recorded Confirmed alendronate 70 mg tablet 70 mg PO 04/08/22 apixaban 5 mg tablet (Eliquis) 1 tab PO BID 04/08/22 04/08/22 aspirin 81 mg tablet,delayed 1 tab PO DAILY 04/08/22 04/08/22 release atorvastatin 40 mg tablet 1 tab PO DAILY 04/08/22 04/08/22 brimonidine 0.2 % eye drops 1 drp OPHTHALMIC (EYE) DAILY@0730 04/08/22 04/08/22 cholecalciferol (vitamin D3) 25 1 tab PO DAILY 04/08/22 04/08/22 mcg (1,000 unit) tablet cholecalciferol (vitamin D3) 25 1 tab PO DAILY 04/08/22 04/08/22 mcg (1,000 unit) tablet ferrous sulfate 325 mg (65 mg 1 tab PO DAILY 04/08/22 04/08/22 iron) tablet,delayed release levothyroxine 88 mcg tablet 1 tab PO DAILY 04/08/22 04/08/22 lisinopril 40 mg tablet 1 tab PO DAILY 04/08/22 04/08/22 metformin 850 mg tablet 1 tab PO BID 04/08/22 04/08/22 omeprazole 20 mg capsule,delayed 1 cap PO DAILY 04/08/22 04/08/22 release <JACINDA Caballero Last Filed: 04/08/22 01:41> Allergies/Adverse Reactions: Allergies Allergy/AdvReac Type Severity Reaction Status Date / Time No Known Allergies Allergy Unverified 07/26/20 16:17 <JACINDA Caballero Last Filed: 04/08/22 01:41> Review of Systems Review of Systems: Constitutional: No Fever, No Chills ENT/Mouth: No sore throat, No Rhinorrhea Eyes: No Eye Pain, No Swelling, No Redness Cardiovascular: No Chest Pain, No SOB, No Orthopnea, No Edema Respiratory: No Cough, No Sputum, No Wheezing, No dyspnea Gastrointestinal: No Nausea, No Vomiting, No Diarrhea, No abdominal Pain, No Hematochezia, No Melena Genitourinary: No Dysuria, No Urinary Frequency, No Hematuria Musculoskeletal: No joint pain, No Myalgias Skin: + Skin Lesions, No rash Neuro: No Weakness, No Numbness, No Dizziness, + Headache Psych: No Anxiety/Panic, No Depression Heme/Lymph: + Bruising, No Lymphadenopathy Endocrine: No Polyuria, No Polydipsia <JACINDA Caballero Last Filed: 04/08/22 01:41> [facility] Past Medical History Medical History: Medical History (Updated 04/08/22 @ 05:38 by Roxana Carlson MD) A-fib Cholecystectomy planned Diabetes HTN (hypertension) <JACINDA Caballero Last Filed: 04/08/22 01:41> Social History Social History: Social History Alcohol intake: current Alcohol intake frequency: holidays/special occasions only Advance Directives: No Advance Directives Information Provided: Yes <JACINDA Caballero Last Filed: 04/08/22 01:41> Physical Exam Vital Signs: Vital Signs: Last Vital Signs Temp 98.0 F 04/08/22 05:16 Pulse 72 04/08/22 05:16 Resp 16 04/08/22 05:16 BP 137/60 04/08/22 05:16 Pulse Ox 98 04/08/22 05:16 BMI result Body Mass Index 23.7 <JACINDA Caballero - Last Filed: 04/08/22 01:41> Vital Signs: Last Vital Signs Temp 98.0 F 04/08/22 05:16 Pulse 72 04/08/22 05:16 Resp 16 04/08/22 05:16 BP 137/60 04/08/22 05:16 Pulse Ox 98 04/08/22 05:16 BMI result Body Mass Index 23.7 <Roxana Carlson MD - Last Filed: 04/08/22 05:38> Appearance: Alert frail elderly female sitting up in the stretcher, wearing a C-collar Oriented X3. No acute distress. Head/face: forehead with ecchymosis centrally and scattered superficial abrasions on the nose and chin Eyes: Pupils equal, round and reactive to light. ENT: Pharynx normal. Neck: In cervical collar, no midline tenderness CVS: Irregularly irregular. Pulses normal. Respiratory: No respiratory distress. Breath sounds normal. Abdomen: Soft and nontender. +BS x4 Skin: Skin warm and dry. Normal skin color. Normal skin turgor. No rashes. Extremities: pelvis is stable, non-tender hips. left knee with well healed surgical scar, mod/severe area of swelling over the patella with limited ROM due to pain. Unable to flex. Normal inspection and ROM of the ankles, no pitting edema of the LE Neuro: Oriented X 3. No motor deficit. No sensory deficit. Gait not tested due to left knee pain <JACINDA Caballero - Last Filed: 04/08/22 01:41> Course Course Course Narrative: 81 y/o primarily Khmer speaking female with history of afib on eliquis, HTN, DM presenting for evaluation of witnessed mechanical fall with facial trauma and left knee trauma. CT scans head/neck pending as well as imaging of the left knee. basic lab workup and EKG ordered as well. <JACINDA Caballero - Last Filed: 04/08/22 01:41> Reevaluation(s) Reevaluation #1: XR knee with large joint effusion, presumably blood. Placed in IZAIAH wrap for compression. Chronic deformity of the patella, recommending dedicated sunrise view to assess for possible occult fracture which has been ordered. Her CT head/neck/facial bones show no acute intracranial bleed, no facial bone fractures, no traumatic c-spine sublux or fx. C-collar removed. <JACINDA Caballero - Last Filed: 04/08/22 01:41> Reevaluation #2: Labs showing mild LUIS on CKD, BUN/Cr 41/2.03 from a baseline of 29/1.46. hyperglycemia 350 without a gap. Will give 1 L IVF. Planning for physical therapy evaluation in the morning and case management consult. Family hoping patient will qualify for home PT. She lives home alone. She has no cane or walker which she will need. Expressed concern for safety and probable need for STR. Family expressed understanding and will be back tomorrow to speak with case management. <JACINDA Caballero - Last Filed: 04/08/22 01:41> Reevaluation #3: Patient unable to flex her knee for sunrise view of the patella. Will get CT scan for further evaluation of possible occult fracture. Will place patient in physician observation at this time. Physician observation started at 13:37am. Patient placed in physician observation because patient is awaiting PT evaluation for possible placement to short term rehab. At the time observation was started patient's vital signs were stable. Patient is alert and oriented. Neuro exam is non-focal. CV: irregularly irregular and lungs are clear. Will continue to monitor. <JACINDA Caballero - Last Filed: 04/08/22 01:41> Additional Reevaluation(s): 0535: On review of all investigations there is evidence of a nondisplaced fracture of the left patella with hemarthrosis. Izaiah wrap will be left in place for compression and overlying knee immobilizer put in place. I reached out to Orthopedics and recommends:Wbat with a knee immobilizer In the meantime, patient has both physical therapy as well as case management ordered. <Roxana Carlson MD - Last Filed: 04/08/22 05:38> MDM - Fall Medical Records Attestation: I reviewed the patient's medical records. <JACINDA Caballero - Last Filed: 04/08/22 01:41> Lab Data Attestation: I reviewed the patient's lab results. <JACINDA Caballero - Last Filed: 04/08/22 01:41> Result diagrams: : 04/07/22 23:34 04/07/22 23:34 <JACINDA Caballero - Last Filed: 04/08/22 01:41> Labs: Lab Results 04/07/22 04/07/22 04/07/22 Range/Units 23:33 23:33 23:34 WBC 9.1 (4.8-10.8) X10*3/uL RBC 3.82 L (4.20-5.50) X10*6/uL Hgb 10.7 L (12.0-16.0) g/dl Hct 34.5 L (37.0-47.0) % MCV 90.3 (80.0-98.0) fL MCH 28.0 (27.0-33.0) pg MCHC 31.0 (31.0-35.0) g/dl RDW 13.2 (11.0-16.0) % Plt Count 265 (160-400) X10*3/uL MPV 10.6 (9.4-12.3) fL Immature Gran % (Auto) 0.2 (0.0-0.4) % Neut % (Auto) 60.4 (45-73) % Lymph % (Auto) 29.8 (20-40) % [place] % (Auto) 6.4 (2-11) % Eos % (Auto) 2.8 (0-4) % Baso % (Auto) 0.4 (0-2) % Lymph # (Auto) 2.7 (1.2-4.9) X10*3/uL [place] # (Auto) 0.6 (0.1-1.2) X10*3/uL Eos # (Auto) 0.3 (0.0-0.4) X10*3/uL Baso # (Auto) 0.0 (0.0-0.2) X10*3/uL Abs Immat Gran (auto) 0.02 (0.00-0.03) X10*3/uL Absolute Neuts (auto) 5.5 (2.0-8.3) x10*3/uL Absolute Nucleated RBC 0.000 (0.0-0.012) X10*3/uL Nucleated RBC % (auto) 0.0 (0.0-0.2) /100WBC PT (9.9-13.0) SEC INR (0.9-1.1) APTT (24.1-38.0) SEC Sodium (135-145) mmol/L Potassium (3.3-5.1) mmol/L Chloride (96-108) mmol/L Carbon Dioxide (22-29) mmol/L Anion Gap (12-20) BUN (9-16) mg/dL Creatinine (0.5-1.4) mg/dL Estim Creat Clear Calc Estimated GFR Random Glucose (60-115) mg/dL Calcium (8.4-10.2) mg/dL Magnesium (1.6-2.6) mg/dL Total Bilirubin (0.0-1.0) mg/dL Direct Bilirubin (0.0-0.5) mg/dL AST (5-31) U/L ALT (0-31) U/L Alkaline Phosphatase (39-117) U/L Total Protein (6.5-8.0) g/dL Albumin (3.5-5.0) g/dL Urine Color STRAW Urine Appearance CLEAR Urine pH 6.5 (5.0-8.0) Ur Specific [place] <= 1.005 (1.005-1.025) Urine Protein NEG (NEG-TRACE) MG/DL Urine Glucose (UA) 250 H (NEG) MG/DL Urine Ketones NEG (NEG) MG/DL Urine Blood NEG (NEG) Urine Nitrite NEG (NEG) Ur Leukocyte Esterase NEG (NEG) COVID-19 (NNAMDI) Negative (Negative) COVID-19 Clin Com See Note 04/07/22 04/07/22 Range/Units 23:34 23:34 WBC (4.8-10.8) X10*3/uL RBC (4.20-5.50) X10*6/uL Hgb (12.0-16.0) g/dl Hct (37.0-47.0) % MCV (80.0-98.0) fL MCH (27.0-33.0) pg MCHC (31.0-35.0) g/dl RDW (11.0-16.0) % Plt Count (160-400) X10*3/uL MPV (9.4-12.3) fL Immature Gran % (Auto) (0.0-0.4) % Neut % (Auto) (45-73) % Lymph % (Auto) (20-40) % [place] % (Auto) (2-11) % Eos % (Auto) (0-4) % Baso % (Auto) (0-2) % Lymph # (Auto) (1.2-4.9) X10*3/uL [place] # (Auto) (0.1-1.2) X10*3/uL Eos # (Auto) (0.0-0.4) X10*3/uL Baso # (Auto) (0.0-0.2) X10*3/uL Abs Immat Gran (auto) (0.00-0.03) X10*3/uL Absolute Neuts (auto) (2.0-8.3) x10*3/uL Absolute Nucleated RBC (0.0-0.012) X10*3/uL Nucleated RBC % (auto) (0.0-0.2) /100WBC PT 12.2 (9.9-13.0) SEC INR 1.1 (0.9-1.1) APTT 33.4 (24.1-38.0) SEC Sodium 136 (135-145) mmol/L Potassium 4.8 (3.3-5.1) mmol/L Chloride 101 (96-108) mmol/L Carbon Dioxide 23 (22-29) mmol/L Anion Gap 17 (12-20) BUN 41 H (9-16) mg/dL Creatinine 2.03 H (0.5-1.4) mg/dL Estim Creat Clear Calc 18.4 Estimated GFR 23 Random Glucose 349 H (60-115) mg/dL Calcium 9.7 D (8.4-10.2) mg/dL Magnesium 2.0 (1.6-2.6) mg/dL Total Bilirubin 0.7 (0.0-1.0) mg/dL Direct Bilirubin 0.2 (0.0-0.5) mg/dL AST 13 (5-31) U/L ALT 16 (0-31) U/L Alkaline Phosphatase 98 D (39-117) U/L Total Protein 7.1 (6.5-8.0) g/dL Albumin 4.4 (3.5-5.0) g/dL Urine Color Urine Appearance Urine pH (5.0-8.0) Ur Specific [place] (1.005-1.025) Urine Protein (NEG-TRACE) MG/DL Urine Glucose (UA) (NEG) MG/DL Urine Ketones (NEG) MG/DL Urine Blood (NEG) Urine Nitrite (NEG) Ur Leukocyte Esterase (NEG) COVID-19 (NNAMDI) (Negative) COVID-19 Clin Com <JACINDA Caballero - Last Filed: 04/08/22 01:41> Lab Results 04/07/22 04/07/22 04/07/22 Range/Units 23:33 23:33 23:34 WBC 9.1 (4.8-10.8) X10*3/uL RBC 3.82 L (4.20-5.50) X10*6/uL Hgb 10.7 L (12.0-16.0) g/dl Hct 34.5 L (37.0-47.0) % MCV 90.3 (80.0-98.0) fL MCH 28.0 (27.0-33.0) pg MCHC 31.0 (31.0-35.0) g/dl RDW 13.2 (11.0-16.0) % Plt Count 265 (160-400) X10*3/uL MPV 10.6 (9.4-12.3) fL Immature Gran % (Auto) 0.2 (0.0-0.4) % Neut % (Auto) 60.4 (45-73) % Lymph % (Auto) 29.8 (20-40) % [place] % (Auto) 6.4 (2-11) % Eos % (Auto) 2.8 (0-4) % Baso % (Auto) 0.4 (0-2) % Lymph # (Auto) 2.7 (1.2-4.9) X10*3/uL [place] # (Auto) 0.6 (0.1-1.2) X10*3/uL Eos # (Auto) 0.3 (0.0-0.4) X10*3/uL Baso # (Auto) 0.0 (0.0-0.2) X10*3/uL Abs Immat Gran (auto) 0.02 (0.00-0.03) X10*3/uL Absolute Neuts (auto) 5.5 (2.0-8.3) x10*3/uL Absolute Nucleated RBC 0.000 (0.0-0.012) X10*3/uL Nucleated RBC % (auto) 0.0 (0.0-0.2) /100WBC PT (9.9-13.0) SEC INR (0.9-1.1) APTT (24.1-38.0) SEC Sodium (135-145) mmol/L Potassium (3.3-5.1) mmol/L Chloride (96-108) mmol/L Carbon Dioxide (22-29) mmol/L Anion Gap (12-20) BUN (9-16) mg/dL Creatinine (0.5-1.4) mg/dL Estim Creat Clear Calc Estimated GFR Random Glucose (60-115) mg/dL Calcium (8.4-10.2) mg/dL Magnesium (1.6-2.6) mg/dL Total Bilirubin (0.0-1.0) mg/dL Direct Bilirubin (0.0-0.5) mg/dL AST (5-31) U/L ALT (0-31) U/L Alkaline Phosphatase (39-117) U/L Total Protein (6.5-8.0) g/dL Albumin (3.5-5.0) g/dL Urine Color STRAW Urine Appearance CLEAR Urine pH 6.5 (5.0-8.0) Ur Specific [place] <= 1.005 (1.005-1.025) Urine Protein NEG (NEG-TRACE) MG/DL Urine Glucose (UA) 250 H (NEG) MG/DL Urine Ketones NEG (NEG) MG/DL Urine Blood NEG (NEG) Urine Nitrite NEG (NEG) Ur Leukocyte Esterase NEG (NEG) COVID-19 (NNAMDI) Negative (Negative) COVID-19 Clin Com See Note 04/07/22 04/07/22 Range/Units 23:34 23:34 WBC (4.8-10.8) X10*3/uL RBC (4.20-5.50) X10*6/uL Hgb (12.0-16.0) g/dl Hct (37.0-47.0) % MCV (80.0-98.0) fL MCH (27.0-33.0) pg MCHC (31.0-35.0) g/dl RDW (11.0-16.0) % Plt Count (160-400) X10*3/uL MPV (9.4-12.3) fL Immature Gran % (Auto) (0.0-0.4) % Neut % (Auto) (45-73) % Lymph % (Auto) (20-40) % [place] % (Auto) (2-11) % Eos % (Auto) (0-4) % Baso % (Auto) (0-2) % Lymph # (Auto) (1.2-4.9) X10*3/uL [place] # (Auto) (0.1-1.2) X10*3/uL Eos # (Auto) (0.0-0.4) X10*3/uL Baso # (Auto) (0.0-0.2) X10*3/uL Abs Immat Gran (auto) (0.00-0.03) X10*3/uL Absolute Neuts (auto) (2.0-8.3) x10*3/uL Absolute Nucleated RBC (0.0-0.012) X10*3/uL Nucleated RBC % (auto) (0.0-0.2) /100WBC PT 12.2 (9.9-13.0) SEC INR 1.1 (0.9-1.1) APTT 33.4 (24.1-38.0) SEC Sodium 136 (135-145) mmol/L Potassium 4.8 (3.3-5.1) mmol/L Chloride 101 (96-108) mmol/L Carbon Dioxide 23 (22-29) mmol/L Anion Gap 17 (12-20) BUN 41 H (9-16) mg/dL Creatinine 2.03 H (0.5-1.4) mg/dL Estim Creat Clear Calc 18.4 Estimated GFR 23 Random Glucose 349 H (60-115) mg/dL Calcium 9.7 D (8.4-10.2) mg/dL Magnesium 2.0 (1.6-2.6) mg/dL Total Bilirubin 0.7 (0.0-1.0) mg/dL Direct Bilirubin 0.2 (0.0-0.5) mg/dL AST 13 (5-31) U/L ALT 16 (0-31) U/L Alkaline Phosphatase 98 D (39-117) U/L Total Protein 7.1 (6.5-8.0) g/dL Albumin 4.4 (3.5-5.0) g/dL Urine Color Urine Appearance Urine pH (5.0-8.0) Ur Specific [place] (1.005-1.025) Urine Protein (NEG-TRACE) MG/DL Urine Glucose (UA) (NEG) MG/DL Urine Ketones (NEG) MG/DL Urine Blood (NEG) Urine Nitrite (NEG) Ur Leukocyte Esterase (NEG) COVID-19 (NNAMDI) (Negative) COVID-19 Clin Com <Roxana Carlson MD - Last Filed: 04/08/22 05:38> ECG Data Attestation: I personally reviewed and interpreted this ECG as follows: <JACINDA Caballero - Last Filed: 04/08/22 01:41> ECG interpretation date: 04/07/22 <JACINDA Caballero - Last Filed: 04/08/22 01:41> ECG interpretation time: 23:51 <JACINDA Caballero - Last Filed: 04/08/22 01:41> Prior ECG tracings: available for review <JACINDA Caballero - Last Filed: 04/08/22 01:41> Interpretation: atrial flutter with HR 106, RBBB, no significant change from prior <JACINDA Caballero - Last Filed: 04/08/22 01:41> Discharge Plan Discharge Clinical Impression: Effusion of knee joint, left, Acute kidney injury superimposed on CKD, Abrasion of face, Hyperglycemia, Patellar fracture <JACINDA Caballero - Last Filed: 04/08/22 01:41> Patient Disposition: Still a Patient <JACINDA Caballero - Last Filed: 04/08/22 01:41> Instructions: Chronic Kidney Disease (ED), Abrasion (ED), Swollen Knee Joint (ED) <JACINDA Caballero - Last Filed: 04/08/22 01:41> Prescriptions: No Action atorvastatin 40 mg tablet 1 tab PO DAILY 0RF alendronate 70 mg tablet 70 mg PO 0RF metformin 850 mg tablet 1 tab PO BID 0RF aspirin 81 mg tablet,delayed release (DR/EC) 1 tab PO DAILY 0RF levothyroxine 88 mcg tablet 1 tab PO DAILY 0RF brimonidine 0.2 % drops 1 drp ophthalmic (eye) DAILY@0730 0RF omeprazole 20 mg capsule,delayed release(DR/EC) 1 cap PO DAILY 0RF ferrous sulfate 325 mg (65 mg iron) tablet,delayed release (DR/EC) 1 tab PO DAILY 0RF lisinopril 40 mg tablet 1 tab PO DAILY 0RF cholecalciferol (vitamin D3) 25 mcg (1,000 unit) tablet 1 tab PO DAILY 0RF cholecalciferol (vitamin D3) 25 mcg (1,000 unit) tablet 1 tab PO DAILY 0RF Eliquis 5 mg tablet 1 tab PO BID 0RF <JACINDA Caballero - Last Filed: 04/08/22 01:41> Referrals: Charlie Price MD [Physician] - (traumatic knee effusion, on eliquis) <JACINDA Caballero - Last Filed: 04/08/22 01:41>
[2022-04-07 22:57] VITALS: BMI 23.7
[2022-04-07 23:01] VITALS: BP 160/90; PULSE 110; O2SAT 98
--- NOTE | 2022-04-07 23:03 | ECG_ITS ---
Test Reason : FALL Blood Pressure : / mmHG Vent. Rate : 106 BPM Atrial Rate : 227 BPM P-R Int : 000 ms QRS Dur : 118 ms QT Int : 314 ms P-R-T Axes : 000 -09 -02 degrees QTc Int : 417 ms Atrial flutter with variable A-V block Right bundle branch block Abnormal ECG When compared with ECG of 30-JAN-2021 22:49, Atrial flutter has replaced Sinus rhythm ST now depressed in Inferior leads ST now depressed in Anterolateral leads Nonspecific T wave abnormality now evident in Anterior leads QT has shortened Referred By: Leanna Mirza Electronically Signed By:LINSEY GUILLEN MD
[2022-04-07 23:48] VITALS: BP 151/82; PULSE 109; RESP 16; TEMP 37.1; O2SAT 97
--- NOTE | 2022-04-08 00:11 | PC.NURSE ---
PATIENT WAS ASSISTED ONTO BEDPAN TIMES 2 BY THIS PCT .
[2022-04-08 00:26] LABS: MANUAL DIFF FLAG NO
[2022-04-08 00:31] LABS: Basophils Percent Auto 0.4 % (0-2); Eosinophils Absolute Auto 0.3 X10*3/uL (0.0-0.4); Eosinophils Percent Auto 2.8 % (0-4); Hematocrit 34.5 % (37.0-47.0); Hemoglobin 10.7 g/dl (12.0-16.0); Imm Gran Abs Auto 0.02 X10*3/uL (0.00-0.03); Imm Gran Pct Auto 0.2 % (0.0-0.4); Lymphocytes Absolute Auto 2.7 X10*3/uL (1.2-4.9); Lymphocytes Percent Auto 29.8 % (20-40); Mean Corpuscular Volume 90.3 fL (80.0-98.0); Mean Platelet Volume 10.6 fL (9.4-12.3); Monocytes Absolute Auto 0.6 X10*3/uL (0.1-1.2); Monocytes Percent Auto 6.4 % (2-11); Neutrophils Absolute Auto 5.5 x10*3/uL (2.0-8.3); Neutrophils Percent Auto 60.4 % (45-73); Platelet Count 265 X10*3/uL (160-400); Red Blood Count 3.82 X10*6/uL (4.20-5.50); Red Cell Distribution Width 13.2 % (11.0-16.0); White Blood Count 9.1 X10*3/uL (4.8-10.8)
[2022-04-08 00:35] LABS: Appearance Urine CLEAR; Color Urine STRAW; Glucose Urine UA 250 MG/DL (NEG); Leukocyte Esterase Urine NEG (NEG); Nitrite Urine NEG (NEG); PH 6.5 (5.0-8.0); Specific Gravity - Urine <= 1.005 (1.005-1.025); Urine Blood NEG (NEG); Urine Ketones NEG (NEG); Urine Protein NEG (NEG-TRACE)
[2022-04-08 00:37] LABS: INTERNATIONAL NORM RATIO 1.1 (0.9-1.1); Prothrombin Time 12.2 SEC (9.9-13.0)
[2022-04-08 00:40] LABS: Partial Thromboplastin Time 33.4 SEC (24.1-38.0)
[2022-04-08 00:48] LABS: COVID-19 Test Negative (Negative)
[2022-04-08 00:58] LABS: Alanine Aminotransferase 16 U/L (0-31); Albumin Level 4.4 g/dL (3.5-5.0); Alkaline Phosphatase 98 U/L (39-117); Anion Gap 17 (12-20); Aspartate Amino Transferase 13 U/L (5-31); Bilirubin Direct 0.2 mg/dL (0.0-0.5); Bilirubin Total 0.7 mg/dL (0.0-1.0); Blood Urea Nitrogen 41 mg/dL (9-16); Calcium 9.7 mg/dL (8.4-10.2); Carbon Dioxide 23 mmol/L (22-29); Chloride 101 mmol/L (96-108); Creatinine Clr Calc Pharmacy 18.4; Estimated Glomerular Filt Rate 23; Glucose Random 349 mg/dL (60-115); Potassium 4.8 mmol/L (3.3-5.1); Sodium 136 mmol/L (135-145); Total Protein 7.1 g/dL (6.5-8.0)
[2022-04-08] MEDS: 0.9 % Sodium Chloride 1,000 ML 999 ML IVCONT (01:34)
[2022-04-08] MEDS: Acetaminophen 325 MG TABLET 650 MG PO ×3 (01:34→16:26)
--- NOTE | 2022-04-08 01:48 | PC.NURSE ---
Daughters at bedside, pt assisted with bedpan and now a purewick is in place. Left knee wrapped with keri wrap and elevated with pillow. C-collar removed. Pt has swelling and abrasion above bridge of nose. Pt moving all extremities, awake and alert and following commands. Pt needs wellness ambassador.
--- NOTE | 2022-04-08 02:52 | PC.NURSE ---
PERWICK CANISTER EMPTY 1000ML CLEAR URINE .
[2022-04-08 05:16] VITALS: BP 137/60; PULSE 72; RESP 16; TEMP 36.7; O2SAT 98
[2022-04-08 07:03] LABS: Anion Gap 12 (12-20); Blood Urea Nitrogen 33 mg/dL (9-16); Calcium 9.4 mg/dL (8.4-10.2); Carbon Dioxide 26 mmol/L (22-29); Chloride 108 mmol/L (96-108); Creatinine Clr Calc Pharmacy 25.1; Estimated Glomerular Filt Rate 34; Glucose Random 146 mg/dL (60-115); Potassium 4.6 mmol/L (3.3-5.1); Sodium 141 mmol/L (135-145)
--- NOTE | 2022-04-08 07:03 | PHA.MEDREC ---
Pharmacy Consult ? Medication Reconciliation Pharmacy has reviewed the medication reconciliation completed by Nichole. Liz Giraldo, AureaD
[2022-04-08 07:26] VITALS: BP 153/83; PULSE 80; RESP 16; TEMP 37.2; O2SAT 100
[2022-04-08 08:27] VITALS: BP 153/83; PULSE 80; O2SAT 100
[2022-04-08 10:25] LABS: Glucose, Whole Blood 172 mg/dL (60-115)
--- NOTE | 2022-04-08 11:34 | MHC.CM.ED ---
Received case management consult overnight. Patient came to the ER after a fall. Patient found to have a patellar fx. Physical therapy eval completed. Short term rehab is recommended. Met with patient and assembler surgical garment in regards to discharge planning. Patient lives alone, ambulates independently and has homemaker services 7.5 hours per week. Copy of HCP verified to be on file. Patient received 3 Covid vaccines. PCP verified. Patient requesting referral to [facility]. Referral made via [facility]. [facility] can offer a bed and is in the process of obtaining insurance auth. Continue to monitor for d/c needs.
[2022-04-08 11:57] VITALS: BP 160/76; PULSE 71; RESP 16; O2SAT 98
[2022-04-08] MEDS: metFORMIN HCl 850 MG TABLET PO (11:58)
[2022-04-08] MEDS: Atorvastatin Calcium 40 MG TABLET PO (11:59)
[2022-04-08] MEDS: Ferrous Sulfate 324 MG TABLET.DR PO (11:59)
[2022-04-08] MEDS: Cholecalciferol (Vitamin D3) 25 MCG TABLET PO (11:59)
[2022-04-08] MEDS: lisinopriL 40 MG TABLET PO (11:59)
[2022-04-08] MEDS: Levothyroxine Sodium 88 MCG TABLET PO (11:59)
[2022-04-08] MEDS: Omeprazole 20 MG CAPSULE.DR PO (11:59)
[2022-04-08] MEDS: Multivitamin TABLET 1 TAB PO (11:59)
[2022-04-08] MEDS: oxyCODONE HCl Immed Release 5 MG TABLET PO (12:07)
[2022-04-08 12:53] VITALS: BP 177/76; PULSE 73; RESP 16; TEMP 36.6; O2SAT 95
--- NOTE | 2022-04-08 16:20 | MHC.CM.ED ---
Insurance auth has been obtained by Ailyn Bond. Patient can leave at 5pm. [facility] booked. Med nec with chart. Patient, daughter, Vinod PEPE and Dr Blankenship aware. Continue to monitor for d/c needs.
--- NOTE | 2022-04-08 18:25 | MHC.CM.ED ---
Script for oxycodone obtained. Given to Vinod PEPE along with ra banks. Continuing to wait for BLS transport. Daughter Idania updated. Aware that BLS booked for 5pm, but pending emergencies, pt transportation to [facility] could be delayed. CM to follow for d/c needs.
--- NOTE | 2022-04-08 18:39 | PC.NURSE ---
pt accepted to [facility]. transportation booked, pt awaiting pepper picker. pt and are aware of the plan. Daughter - Idania Schafer [phone]
[2022-04-08 20:13] VITALS: BP 179/81; PULSE 82; RESP 15; TEMP 37.4; O2SAT 98
== END 2022-04-08 20:54 | disposition still patient (30) ==
PROVIDERS: Physician Assistant; Emergency Provider Student in an Organized Health Care Education/Training Program; PCP Internal Medicine
DX: M25.462 Effusion, left knee (principal); E11.22 Type 2 diabetes mellitus with diabetic chronic kidney disease; I12.9 Hypertensive chronic kidney disease with stage 1 through stage 4 chronic kidney disease, or unspecified chronic kidney disease; N18.9 Chronic kidney disease, unspecified; N17.9 Acute kidney failure, unspecified; E11.65 Type 2 diabetes mellitus with hyperglycemia; S82.002A Unspecified fracture of left patella, initial encounter for closed fracture; S00.81XA Abrasion of other part of head, initial encounter; W01.0XXA Fall on same level from slipping, tripping and stumbling without subsequent striking against object, initial encounter; I48.91 Unspecified atrial fibrillation; Z79.01 Long term (current) use of anticoagulants; Z79.02 Long term (current) use of antithrombotics/antiplatelets; Z79.899 Other long term (current) drug therapy; Z20.822 Contact with and (suspected) exposure to COVID-19; Y93.89 Activity, other specified; Y92.017 Garden or yard in single-family (private) house as the place of occurrence of the external cause; Y99.9 Unspecified external cause status
CPT/HCPCS: 36415; 70450; 70486; 72125; 73560; 73564; 73700; 80048; 80076; 81003; 82947; 83735; 85025; 85610; 85730; 87635; 93005; 96360; 97162; 99285

== ENCOUNTER 2022-04-14 07:40 | Outpatient (REF) | payer OTHER, SELFPAY ==
--- NOTE | ~2022-04-14 | XR_ITS ---
EXAMINATION: XR KNEE, LEFT CLINICAL INFORMATION: Left knee pain COMPARISON: 04/08/2022 TECHNIQUE: Single lateral view of the left knee FINDINGS: There is elongated appearance of the patella, similar to the prior CT. The previously visualized fracture line is not clearly identified on this study. Alignment is unchanged. Joint effusion remains. Degenerative changes of the patellofemoral compartment with osteophytes. XR/XR knee LT 1V IMPRESSION: Similar appearance of the patella to the previous CT with elongated osseous appearance. Joint effusion remains.
== END 2022-04-14 07:41 | disposition home or self-care (01) ==
LOC: HO.HOSX 07:40
PROVIDERS: Visit Provider Physician Assistant
DX: S82.002A Unspecified fracture of left patella, initial encounter for closed fracture (principal)
CPT/HCPCS: 73560; 99202

== ENCOUNTER 2022-05-20 12:18 | Outpatient (REF) | payer OTHER, SELFPAY ==
--- NOTE | ~2022-05-20 | XR_ITS ---
EXAMINATION: XR knee LT 2V, XR knee standing BI CLINICAL INFORMATION: Reason for Exam M25.569 - Pain in unspecified knee COMPARISON: Multiple prior exams most recent April 08, 2022. TECHNIQUE: Bilateral frontal standing, left lateral and patella sunrise view. FINDINGS: BONES: No fracture or dislocation is present. JOINTS: Narrowing of joint spaces and developed osteophytes from the edges of articular surfaces suggest degenerative osteoarthritis. SOFT TISSUE: Bilateral intra-articular calcifications, chondrocalcinosis, this raise the possibility of CPPD. 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 *Small knee joint effusion. *Chondrocalcinosis, raising the possibility of CPPD. Please correlate with patient's laboratory data.
--- NOTE | ~2022-05-20 | XR_ITS ---
EXAMINATION: XR knee LT 2V, XR knee standing BI CLINICAL INFORMATION: Reason for Exam M25.569 - Pain in unspecified knee COMPARISON: Multiple prior exams most recent April 08, 2022. TECHNIQUE: Bilateral frontal standing, left lateral and patella sunrise view. FINDINGS: BONES: No fracture or dislocation is present. JOINTS: Narrowing of joint spaces and developed osteophytes from the edges of articular surfaces suggest degenerative osteoarthritis. SOFT TISSUE: Bilateral intra-articular calcifications, chondrocalcinosis, this raise the possibility of CPPD. 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 *Small knee joint effusion. *Chondrocalcinosis, raising the possibility of CPPD. Please correlate with patient's laboratory data.
== END 2022-05-20 12:19 | disposition home or self-care (01) ==
LOC: HO.HOSX 12:18
PROVIDERS: Visit Provider Physician Assistant
DX: S82.002A Unspecified fracture of left patella, initial encounter for closed fracture (principal)
CPT/HCPCS: 73560; 73565; 99212

== ENCOUNTER 2022-06-19 08:11 | Outpatient (REF) | payer OTHER, SELFPAY ==
--- NOTE | ~2022-06-19 | XR_ITS ---
EXAMINATION: XR KNEE, LEFT CLINICAL INFORMATION: Knee pain COMPARISON: 04/08/2022 and 05/20/2022 TECHNIQUE: Four views of the left knee. FINDINGS: Bones are diffusely osteopenic. Again noted is prominent enthesophyte/ossification affecting from the lower pole of the patella. This could be secondary to remote avulsive trauma. The fracture lines within the patella have become less conspicuous compared to 04/08/2022. The knee joint effusion continues to decrease in size. Small residual effusion is visible in the suprapatellar compartment. Again noted is the meniscal chondrocalcinosis, subchondral cystic changes and tricompartmental osteophyte formation. There is chronic narrowing of the medial tibiofemoral joint space, and chronic irregular narrowing of the degenerated patellofemoral joint space. XR/XR knee LT 2V IMPRESSION: * Moderate tricompartmental osteoarthritis and chondrocalcinosis of the left knee. * The posttraumatic knee joint effusion continues to decrease in size. * The patellar fracture lines persist but are becoming less conspicuous, which suggests a degree of healing.
== END 2022-06-19 08:12 | disposition home or self-care (01) ==
LOC: HO.HOSX 08:11
PROVIDERS: Visit Provider Physician Assistant
DX: M25.562 Pain in left knee (principal)
CPT/HCPCS: 73560

== ENCOUNTER 2022-09-02 09:36 | Outpatient (REF) | payer OTHER, SELFPAY ==
--- NOTE | ~2022-09-02 | MM_ITS ---
EXAMINATION: MM SCREENING DIGITAL BREAST TOMOSYNTHESIS, BILATERAL CLINICAL INFORMATION: Screening. Asymptomatic. The lifetime risk of breast cancer based on the Tyrer-Cuzick Model is 1.4%. COMPARISON: Mammography: August 27, 2021 and studies dating back to April 25, 2016 TECHNIQUE: Digital breast tomosynthesis is performed in both the craniocaudal and mediolateral oblique views along with computer-aided detection (CAD). Synthesized 2D images are generated from the tomosynthesis. FINDINGS: The breasts are almost entirely fatty (ACR BI-RADS breast composition Category a). There are no significant masses, abnormal calcifications, or other abnormalities. MM/MM tomosynthesis screening BI IMPRESSION: No significant changes ASSESSMENT: BI-RADS 1: Negative RECOMMENDATION: Routine annual mammography screening. This patient's information was entered into a reminder system with a target due date for their next mammogram.
== END 2022-09-02 09:37 | disposition home or self-care (01) ==
LOC: HO.MAMMO 09:36
PROVIDERS: PCP Internal Medicine; Visit Provider Internal Medicine
DX: Z12.31 Encounter for screening mammogram for malignant neoplasm of breast (principal)
CPT/HCPCS: 77063; 77067

== ENCOUNTER 2023-05-27 11:44 | Outpatient (REF) | payer OTHER, SELFPAY ==
[2023-05-27 15:49] LABS: Free T4 (Free Thyroxine) < 0.42 ng/dL (0.71-1.85); T4 Thyroxine < 3.0 ug/dL (4.5-12.0)
[2023-05-29 11:13] LABS: Triiodothyronine T3 Free 1.1 pg/mL (2.3-4.2); Triiodothyronine T3 Total 28 ng/dL (76-181)
== END 2023-05-27 11:45 | disposition home or self-care (01) ==
LOC: HO.HHCL 11:44
PROVIDERS: Visit Provider Internal Medicine
DX: E89.0 Postprocedural hypothyroidism (principal)
CPT/HCPCS: 36415; 84436; 84439; 84480; 84481

== ENCOUNTER 2023-06-26 14:22 | Outpatient (REF) | payer OTHER, SELFPAY ==
[2023-06-26 16:11] LABS: MANUAL DIFF FLAG NO
[2023-06-26 16:18] LABS: Basophils Percent Auto 0.6 % (0-2); Eosinophils Absolute Auto 0.1 X10*3/uL (0.0-0.4); Eosinophils Percent Auto 0.7 % (0-4); Hematocrit 32.1 % (37.0-47.0); Hemoglobin 10.7 g/dl (12.0-16.0); Imm Gran Abs Auto 0.03 X10*3/uL (0.00-0.03); Imm Gran Pct Auto 0.4 % (0.0-0.4); Lymphocytes Absolute Auto 2.4 X10*3/uL (1.2-4.9); Lymphocytes Percent Auto 34.2 % (20-40); Mean Corpuscular HGB Conc 33.3 g/dl (31.0-35.0); Mean Corpuscular Hemoglobin 31.5 pg (27.0-33.0); Mean Corpuscular Volume 94.4 fL (80.0-98.0); Monocytes Absolute Auto 0.3 X10*3/uL (0.1-1.2); Monocytes Percent Auto 4.5 % (2-11); Neutrophils Absolute Auto 4.2 x10*3/uL (2.0-8.3); Neutrophils Percent Auto 59.6 % (45-73); Platelet Count 232 X10*3/uL (160-400); Red Cell Distribution Width 14.4 % (11.0-16.0); White Blood Count 7.1 X10*3/uL (4.8-10.8)
[2023-06-26 16:46] LABS: Anion Gap 13 (12-20); Blood Urea Nitrogen 21 mg/dL (9-16); Calcium 10.9 mg/dL (8.4-10.2); Carbon Dioxide 27 mmol/L (22-29); Chloride 103 mmol/L (96-108); Estimated Glomerular Filt Rate 27; Glucose Random 148 mg/dL (60-115); Potassium 5.2 mmol/L (3.3-5.1); Sodium 138 mmol/L (135-145)
== END 2023-06-26 14:23 | disposition home or self-care (01) ==
LOC: HO.HHCL 14:22
PROVIDERS: Visit Provider Internal Medicine
DX: Z01.818 Encounter for other preprocedural examination (principal)
CPT/HCPCS: 36415; 80048; 85025

== ENCOUNTER 2023-07-14 12:49 | Outpatient (REF) | payer OTHER, SELFPAY ==
[2023-07-14 16:41] LABS: Potassium 4.5 mmol/L (3.3-5.1)
== END 2023-07-14 12:50 | disposition home or self-care (01) ==
LOC: HO.HHCL 12:49
PROVIDERS: Visit Provider Internal Medicine
DX: E87.5 Hyperkalemia (principal)
CPT/HCPCS: 36415; 84132

== ENCOUNTER 2023-08-11 12:05 | Outpatient (REF) | payer OTHER, SELFPAY ==
[2023-08-11 13:32] LABS: MANUAL DIFF FLAG NO
[2023-08-11 13:38] LABS: Appearance Urine Clear; Color Urine Yellow; Glucose Urine UA >=1000 mg/dL (Negative); Leukocyte Esterase Urine Trace (Negative); Nitrite Urine Negative (Negative); UMIC TRIGGER UACC YES; Urine Blood Negative (Negative); Urine Ketones Negative (Negative); Urine Protein Negative (Neg-Trace)
[2023-08-11 13:42] LABS: Basophils Absolute Auto 0.1 X10*3/uL (0.0-0.2); Basophils Percent Auto 0.9 % (0-2); Eosinophils Percent Auto 0.5 % (0-4); Hematocrit 31.7 % (37.0-47.0); Hemoglobin 10.2 g/dl (12.0-16.0); Imm Gran Abs Auto 0.01 X10*3/uL (0.00-0.03); Imm Gran Pct Auto 0.2 % (0.0-0.4); Lymphocytes Absolute Auto 1.9 X10*3/uL (1.2-4.9); Lymphocytes Percent Auto 35.5 % (20-40); Mean Corpuscular HGB Conc 32.2 g/dl (31.0-35.0); Mean Corpuscular Hemoglobin 31.7 pg (27.0-33.0); Mean Corpuscular Volume 98.4 fL (80.0-98.0); Mean Platelet Volume 10.8 fL (9.4-12.3); Monocytes Absolute Auto 0.4 X10*3/uL (0.1-1.2); Monocytes Percent Auto 6.8 % (2-11); Neutrophils Absolute Auto 3.1 x10*3/uL (2.0-8.3); Neutrophils Percent Auto 56.1 % (45-73); Platelet Count 207 X10*3/uL (160-400); Red Blood Count 3.22 X10*6/uL (4.20-5.50); Red Cell Distribution Width 14.2 % (11.0-16.0); White Blood Count 5.5 X10*3/uL (4.8-10.8)
[2023-08-11 13:44] LABS: Bacteria Urine None Seen (None Seen); RBC Urine 0-2 /HPF (0-2); WBC Urine 0-5 /HPF (0-5)
[2023-08-11 13:53] LABS: Estimated Average Glucose 140 mg/dL; Hemoglobin A1c % 6.5 % (<6.0)
[2023-08-11 14:02] LABS: Iron 56 mcg/dL (30-160); Percent Iron Saturation 19 % (15-50); Total Iron Binding Capacity 299 mcg/dL (228-428); Unsaturated Iron Binding 243 ug/dL
[2023-08-11 14:11] LABS: Anion Gap 12 (12-20); Blood Urea Nitrogen 25 mg/dL (9-16); Calcium 10.1 mg/dL (8.4-10.2); Carbon Dioxide 29 mmol/L (22-29); Chloride 103 mmol/L (96-108); Estimated Glomerular Filt Rate 28; Potassium 4.8 mmol/L (3.3-5.1); Sodium 139 mmol/L (135-145)
[2023-08-11 14:27] LABS: Vitamin D 25-OH Total 61.6 ng/mL (>30)
[2023-08-11 14:36] LABS: Folate 9.8 ng/mL (> or = 4.0); Vitamin B12 215 pg/mL (200-900)
[2023-08-11 14:55] LABS: Creatinine Urine 144.87 mg/dL; Total Protein Urine Random 19 mg/dL (<12)
== END 2023-08-11 12:06 | disposition home or self-care (01) ==
LOC: HO.HHCL 12:05
PROVIDERS: PCP Internal Medicine; Visit Provider Physician Assistant
DX: I12.9 Hypertensive chronic kidney disease with stage 1 through stage 4 chronic kidney disease, or unspecified chronic kidney disease (principal); N18.32 Chronic kidney disease, stage 3b; E11.22 Type 2 diabetes mellitus with diabetic chronic kidney disease; K21.9 Gastro-esophageal reflux disease without esophagitis
CPT/HCPCS: 36415; 80051; 81001; 82306; 82310; 82565; 82570; 82607; 82746; 83036; 83540; 84156; 84520; 85025

== ENCOUNTER 2023-10-09 10:18 | Outpatient (REF) | payer OTHER, SELFPAY ==
--- NOTE | 2023-10-09 10:57 | ECG_ITS ---
Test Reason : preop Blood Pressure : / mmHG Vent. Rate : 073 BPM Atrial Rate : 073 BPM P-R Int : 240 ms QRS Dur : 116 ms QT Int : 398 ms P-R-T Axes : 098 008 016 degrees QTc Int : 438 ms Atrial flutter with 4:1 conduction Right bundle branch block Abnormal ECG When compared with ECG of 07-APR-2022 23:37, ST less depressed in Inferior leads ST less depressed in Anterior leads Referred By: Jessica Jeffers Electronically Signed By:LINSEY GUILLEN MD
[2023-10-09 11:18] LABS: MANUAL DIFF FLAG NO
[2023-10-09 11:35] LABS: Basophils Percent Auto 0.5 % (0-2); Eosinophils Absolute Auto 0.1 X10*3/uL (0.0-0.4); Eosinophils Percent Auto 1.6 % (0-4); Hematocrit 34.9 % (37.0-47.0); Hemoglobin 10.7 g/dl (12.0-16.0); Imm Gran Abs Auto 0.03 X10*3/uL (0.00-0.03); Imm Gran Pct Auto 0.4 % (0.0-0.4); Lymphocytes Absolute Auto 2.8 X10*3/uL (1.2-4.9); Lymphocytes Percent Auto 34.3 % (20-40); Mean Corpuscular HGB Conc 30.7 g/dl (31.0-35.0); Mean Corpuscular Hemoglobin 30.3 pg (27.0-33.0); Mean Corpuscular Volume 98.9 fL (80.0-98.0); Mean Platelet Volume 10.8 fL (9.4-12.3); Monocytes Absolute Auto 0.5 X10*3/uL (0.1-1.2); Monocytes Percent Auto 6.5 % (2-11); Neutrophils Absolute Auto 4.6 x10*3/uL (2.0-8.3); Neutrophils Percent Auto 56.7 % (45-73); Platelet Count 217 X10*3/uL (160-400); Red Blood Count 3.53 X10*6/uL (4.20-5.50)
[2023-10-09 12:32] LABS: Anion Gap 18 (12-20); Blood Urea Nitrogen 64 mg/dL (9-16); Calcium 10.3 mg/dL (8.4-10.2); Carbon Dioxide 21 mmol/L (22-29); Chloride 110 mmol/L (96-108); Estimated Glomerular Filt Rate 22; Glucose Random 165 mg/dL (60-115); Potassium 5.6 mmol/L (3.3-5.1); Sodium 143 mmol/L (135-145)
== END 2023-10-09 10:19 | disposition home or self-care (01) ==
LOC: HO.HHCL 10:18
PROVIDERS: PCP Internal Medicine; Visit Provider Internal Medicine
DX: Z01.818 Encounter for other preprocedural examination (principal); I10 Essential (primary) hypertension
CPT/HCPCS: 36415; 80048; 85025; 93005

== ENCOUNTER → 2023-10-09 10:57 | Outpatient (BNV) | payer OTHER, SELFPAY | PROVIDERS: PCP Internal Medicine; Visit Provider Internal Medicine Cardiovascular Disease | DX: I48.92 Unspecified atrial flutter (principal) | CPT/HCPCS: 93010 ==

== ENCOUNTER 2023-10-28 15:40 | Outpatient (REF) | payer OTHER, SELFPAY ==
[2023-10-28 17:31] LABS: Anion Gap 15 (12-20); Blood Urea Nitrogen 37 mg/dL (9-16); Calcium 9.1 mg/dL (8.4-10.2); Carbon Dioxide 25 mmol/L (22-29); Chloride 109 mmol/L (96-108); Estimated Glomerular Filt Rate 29; Glucose Random 157 mg/dL (60-115); Potassium 4.7 mmol/L (3.3-5.1); Sodium 144 mmol/L (135-145)
== END 2023-10-28 15:41 | disposition home or self-care (01) ==
LOC: HO.HHCL 15:40
PROVIDERS: Visit Provider Internal Medicine
DX: E87.5 Hyperkalemia (principal)
CPT/HCPCS: 36415; 80048